=== PATIENT | male | born 1940 | race Caucasian/White ===

== ENCOUNTER → 2018-07-19 | Outpatient (CLI) | payer OTHER ==
[~2018-07-19] MED LIST: ASPIR 8181 MG PO; ATORVASTATIN CA40 MG PO; LISINOPRIL10 MG PO; RAPAFLO8 MG PO; VENLAFAXIN75 MG/1 T2 PO
--- NOTE | 2018-07-19 15:29 | CARDNUC ---
[place] [id number] CARDIAC NUCLEAR IMAGING REPORT Name: SONNY KRAFT Room: [facility]#: [id number] Admission: 07/19/18 Attend Phys: Rex Gonzalez MD Discharge: Date of : 38 Date of Service: 07/19/18 1528 Report #: [id number] THIS REPORT FOR: //name// APPROVED REPORT Study performed: 07/19/2018 13:55:20 Exam: Nuclear Stress Test Indication: CAD Patient Location: Out-Patient Stress Tech: Kathy Cheney Stress Nurse: Anayeli Estrada RN NM Tech:CANDI Sales Ht: 5 ft 9 in Wt: 183 lbs BSA: 1.99 m2 BMI: 27.02 Medical History Medical History: cad, hyperlipidemia, hypertension Medications: lisinopril, atorvastatin Allergies: nkda Cardiac Risk Factors: age, hyperlipidemia, hypertension, tobacco, family hx Exercise History: Physically active Stress Test Details Stress Test: Exercise stress testing was performed using a Shiraz protocol. HR Resting HR: 75 bpm Max Heart Rate (APMHR): 141 bpm Max HR Achieved: 130 bpm Target HR (85% APMHR): 119 bpm % of APMHR: 92 Recovery HR: 91 bpm HR response to stress: Normal HR response to stress BP Resting BP: 110/63 mmHg Max BP: 173/57 mmHg BP response to stress: Normal blood pressure response to stress. ECG Resting ECG: Sinus Rhythm Stress ECG: Sinus Tachycardia ST Change: [place] [id number] CARDIAC NUCLEAR IMAGING REPORT Name: SONNY KRAFT Room: [facility]#: [id number] Admission: 07/19/18 Attend Phys: Rex Gonzalez MD Discharge: Date of : 38 Date of Service: 07/19/18 1528 Report #: [id number] Arrhythmia: None Recovery ECG: Sinus Rhythm Recovery ST Change: None Recovery Arrhythmia: None Clinical Reason for Termination: Dyspnea Exercise duration: 7 min 03 sec Exercise capacity: 7.38 METs Functional Aerobic Impairment 92% The patient tolerated standard Shiraz protocol exercise without significant symptoms. Stress ECG Conclusion The baseline 12-lead EKG shows sinus rhythm without significant ST or T wave abnormality. EKGs obtained during and post exercise showed sinus rhythm and sinus tachycardia with no significant ST or T wave changes when compared baseline. There were no stress-induced arrhythmias. NM EXAM: Myocardial Perfusion REST/STRESS Imaging Protocol: Rest Tc-99m/Stress Tc-99m 1 day Resting Data Rest SPECT myocardial perfusion imaging was performed in supine position 30 minutes following the intravenous injection of 11.0 mCi of Tc-99m Sestamibi. Time of rest injection: 1240 Date: 07/19/2018 The images were gated to evaluate regional wall motion and calculate left ventricular ejection fraction. Administration Route: IV Administration Site: Right Hand Exercise Stress At peak stress, the patient was injected intravenously with 34.2mCi of Tc-99m Sestamibi. Time of stress injection: 1400 Date: 07/19/2018 Administration Route: IV Gated Stress SPECT was performed 30 minutes after stress injection. The images were gated to evaluate regional wall motion and calculate left ventricular ejection fraction. Prone imaging was performed. Study Quality Study: [place] [address] CARDIAC NUCLEAR IMAGING REPORT Name: SONNY KRAFT Room: [facility]#: [id number] Admission: 07/19/18 Attend Phys: Rex Gonzalez MD Discharge: Date of : 38 Date of Service: 07/19/18 1528 Report #: [id number] Artifact: Mild Diaphragmatic artifact Study Data At rest, the left ventricular ejection fraction was 83%.. Post stress, the left ventricular ejection was 79%.. TID = 1.02. Perfusion Perfusion images obtained in the supine position at rest and post exercise stress show mild photopenia in the inferior wall that resolves completely with post stress prone imaging suggesting diaphragmatic attenuation artifact. No other significant fixed or reversible defects were identified. Wall Motion Normal left ventricular wall motion. Nuclear Conclusion ECG Findings: negative for ischemia Clinical Findings: negative for ischemia Nuclear Findings: negative for ischemia Exercise Capacity: normal Left Ventricular Function: normal Risk Study: low Myocardial perfusion images show no defect to suggest infarct or ischemia. Left ventricular systolic function appears normal on gated studies. This is a low risk study. <Conclusion> The baseline 12-lead EKG shows sinus rhythm without significant ST or T wave abnormality. EKGs obtained during and post exercise showed sinus rhythm and sinus tachycardia with no significant ST or T wave changes when compared baseline. There were no stress-induced arrhythmias. <ELECTRONICALLY SIGNED> By: Lázaro Ochoa MD, FACC 07/19/18 1528 1528 1528 Lázaro Ochoa MD, FACC /INF
== END ==
LOC: M.NUC 07-10 10:28
DX: I25.10 Atherosclerotic heart disease of native coronary artery without angina pectoris (principal); E78.5 Hyperlipidemia, unspecified; I10 Essential (primary) hypertension; F17.200 Nicotine dependence, unspecified, uncomplicated; Z82.49 Family history of ischemic heart disease and other diseases of the circulatory system; Z79.899 Other long term (current) drug therapy